=== PATIENT | female | born 1950 ===

== ENCOUNTER 2018-05-28 11:15 | Inpatient (IN) | payer OTHER ==
[~2018-05-28] VITALS: Ht 160 cm; Wt 72.6 kg
[2018-05-28] MEDS ORDERED: COZAAR50 MG PO (12:15)
[2018-05-28] MEDS ORDERED: SINGULAIR10 MG PO (12:15)
[2018-05-28] MEDS ORDERED: METFORMIN HCL1000 M1 PO (12:15)
[2018-05-28] MEDS ORDERED: FLOVENT DISKUS50 MCG IH (12:16)
== END 2018-06-01 17:16 | disposition home or self-care (01) | DRG 331 ==
LOC: SURG 11:15 → SURH 05-30 07:36 → O/R 05-30 07:36 → SURG 05-30 11:15 → SURH 05-30 16:06
PROVIDERS: Colon & Rectal Surgery
PROC: 07TC4ZZ Resection of Pelvis Lymphatic, Percutaneous Endoscopic Approach (ICD-10-PCS; 2018-05-30)
PROC: 0DJD8ZZ Inspection of Lower Intestinal Tract, Via Natural or Artificial Opening Endoscopic (ICD-10-PCS; 2018-05-30)
PROC: 0DTN4ZZ Resection of Sigmoid Colon, Percutaneous Endoscopic Approach (ICD-10-PCS; principal; 2018-05-30 13:30)
DX: C19 Malignant neoplasm of rectosigmoid junction (principal); E11.9 Type 2 diabetes mellitus without complications; D50.0 Iron deficiency anemia secondary to blood loss (chronic); I11.9 Hypertensive heart disease without heart failure; J45.20 Mild intermittent asthma, uncomplicated

== ENCOUNTER 2019-06-21 09:00 | Day surgery (SDC) | payer OTHER ==
[~2019-06-21 09:00] MED LIST: COZAAR50 MG PO; FLOVENT DISKUS50 MCG IH; METFORMIN HCL1000 M1 PO; SINGULAIR10 MG PO
== END 2019-06-21 13:25 | disposition home or self-care (01) ==
LOC: AMB-ENDOS 09:00 → CIR.AMB 12:00 → AMB-ENDOS 12:00
DX: K64.1 Second degree hemorrhoids (principal)

== ENCOUNTER 2020-08-14 05:50 | Day surgery (SDC) | payer OTHER | END 2020-08-14 09:30 | disposition home or self-care (01) | LOC: AMB-ENDOS 05:50 | PROVIDERS: ATTEND Colon & Rectal Surgery | DX: K62.89 Other specified diseases of anus and rectum (principal); K64.1 Second degree hemorrhoids; Z20.828 Contact with and (suspected) exposure to other viral communicable diseases ==